=== PATIENT | male | born 1965 | race Caucasian/White ===

== ENCOUNTER 2017-05-24 18:18 | Emergency (ER) | payer OTHER, BC ==
[2017-05-24] MEDS ORDERED: Albuterol/Ipratropium 3.0-0.5 MG/3 ML Neb Soln NEB ONE (18:46)
--- NOTE | 2017-05-24 19:25 | EDM.PDOC ---
ED HPI GENERAL MEDICAL PROBLEM - General Chief Complaint: Respiratory Problem Stated Complaint: TROUBLE BREATHING Time Seen by Provider: 05/24/17 18:26 Source of Information: Reports: Patient History Limitations: Reports: No Limitations - History of Present Illness INITIAL COMMENTS - FREE TEXT/NARRATIVE: Presents to the ER reporting a 3 month history of off and on cough since having the flu back in February. Denies sore throat, sinus fullness, ear fullness, shortness of breath. He states that he coughs so hard he almost blacks out when driving and that his chest hurts with the severe coughing. He does not smoke. He has not seen a provider in the interim. Middle Chest Pain Score (Numeric/FACES): 2 - Related Data Allergies Allergy/AdvReac Type Severity Reaction Status Date / Time No Known Allergies Allergy Verified 05/24/17 18:27 Home Meds: Home Meds Prednisone [IMW: predniSONE] 2 tab PO WITHBREAKFAST #12 tab 05/24/17 [Rx] amLODIPine Besylate [Amlodipine Besylate] 5 mg PO DAILY 05/24/17 [History] Past Medical History Cardiovascular History: Reports: Hypertension - Infectious Disease History Infectious Disease History: Reports: Chicken Pox, Measles, Mumps - Past Surgical History Musculoskeletal Surgical History: Reports: Other (See Below) Other Musculoskeletal Surgeries/Procedures:: knee surgeries Social & Family History - Family History Family Medical History: Noncontributory Cardiac: Reports: Heart Failure - Tobacco Use Smoking Status *Q: Never Smoker - Caffeine Use Caffeine Use: Reports: Coffee - Alcohol Use Days Per Week of Alcohol Use: 3 Number of Drinks Per Day: 4 Total Drinks Per Week: 12 - Recreational Drug Use Recreational Drug Use: No ED ROS GENERAL - Review of Systems Review Of Systems: ROS reveals no pertinent complaints other than HPI. ED EXAM, GENERAL - Physical Exam Exam: See Below Exam Limited By: No Limitations General Appearance: Alert, No Apparent Distress Ears: Normal External Exam, Normal TMs Nose: Normal Inspection Throat/Mouth: Normal Inspection, Normal Oropharynx Head: Atraumatic, Normocephalic Neck: Normal Inspection Respiratory/Chest: No Respiratory Distress, Normal Breath Sounds, Rhonchi ( Scattered), Other (Harsh cough noted in exam room.) Cardiovascular: Normal Peripheral Pulses, Regular Rate, Rhythm, No Murmur GI/Abdominal: Soft Extremities: Normal Inspection, Normal Range of Motion Neurological: Alert, Oriented Psychiatric: Normal Affect, Normal Mood Skin Exam: Warm, Dry, Intact, Normal Color, No Rash Lymphatic: No Adenopathy Course - Vital Signs Last Recorded V/S: Last Vital Signs Temp 36.4 C 05/24/17 18:23 Pulse 60 05/24/17 18:23 Resp 18 05/24/17 18:23 BP 175/97 H 05/24/17 18:23 Pulse Ox 96 05/24/17 18:23 Departure - Departure Time of Disposition: 20:05 Disposition: Home, Self-Care 01 Condition: Good Clinical Impression: Bronchitis - Discharge Information Referrals: PCP,None [Primary Care Provider] - [facility] [Outside] [facility] [Outside] Additional Instructions: 1. Take your prednisone daily for next 6 days, start tonight (with food) 2. Cheratussin with codeine every 4-6 hours as needed for cough with driving precautions. 3. Drink plenty of fluids. 4. Follow up in primary care.
[2017-05-24 20:39] VITALS: BP 147/84
--- NOTE | 2017-05-25 10:48 | CR ---
EXAM DATE: 05/24/17 PATIENT'S AGE: 52 Patient: ALEXEY PRASAD Facility: [place], [place] Site . Site : [id number] Study: XRay Chest [id number] 7:32:43 PM Ordering Physician: Doctor Logan Final Report: INDICATION: cough on and off few months, SOB, hx of influenza B CHEST, PA AND LATERAL Upright PA and lateral radiographs of the chest were performed. Comparison: No previous studies are currently available for comparison. The lungs appear clear and there are no pleural effusions. Heart size and pulmonary vasculature appear normal. Visualized bones show no significant findings. IMPRESSION: No acute intrathoracic abnormality identified. PARKER BROWN MD [employer] Dictated by: Harrison Brown MD @ 05/24/2017 19:46:39 (Electronic Signature) Report Signed by Proxy. [facility]
== END 2017-05-24 20:30 | disposition home or self-care (01) ==
LOC: MW.ED 18:18
DX: J40 Bronchitis, not specified as acute or chronic (principal); I10 Essential (primary) hypertension
CPT/HCPCS: 71046; 71046-26; 94640; 99283-25

== ENCOUNTER 2017-05-28 14:44 | Emergency (ER) | payer BC, OTHER | END 2017-05-28 15:20 | disposition left against medical advice (07) | LOC: MW.ED 14:44 | DX: Z53.21 Procedure and treatment not carried out due to patient leaving prior to being seen by health care provider (principal) ==

== ENCOUNTER 2020-03-06 06:18 | Emergency (ER) | payer BC, OTHER ==
[2020-03-06] MEDS ORDERED: Sodium Chloride 0.9% 10 ML Syringe FLUSH PRN (06:36)
[2020-03-06] MEDS ORDERED: Sodium Chloride 0.9% 2.5 ML Syringe FLUSH PRN (06:36)
--- NOTE | 2020-03-06 06:37 | EDM.PDOC ---
<Que Mark - Last Filed: 03/06/20 16:26> ED HPI GENERAL MEDICAL PROBLEM - General Chief Complaint: Abdominal Pain Stated Complaint: ABDOMINAL PAIN Time Seen by Provider: 03/06/20 06:26 - History of Present Illness INITIAL COMMENTS - FREE TEXT/NARRATIVE: Patient was signed out to me by Dr. Dexter pending labs and imaging at 7 AM I did reevaluate the patient and patient appeared comfortable. His pain had improved. At the time of my evaluation the patient's labs and imaging had not yet returned. Laboratory: CBC is unremarkable. CMP is unremarkable. Lipase is normal. Urinalysis was a clean catch and was negative for leukocyte esterase, negative for nitrites, and negative for blood. Interpretation: negative. The radiological images were viewed by myself along with reading the report from the radiologist. CT abdomen pelvis with contrast reveals acute uncomplicated sigmoid diverticulitis After labs and imaging I did discuss the results with the patient. At this time his pain was controlled. I discussed with him that I would like to provide him with ciprofloxacin and metronidazole and that I be prescribing him with antibiotics to be used over the next 10 days. He was amenable to discharge and had no further questions. The patient should return for any new or worsening symptoms. DISPOSITION: The patient was discharged home in stable condition. The patient will follow up with PCP within 1 week CONDITION: Fair PROCEDURES: None FINAL IMPRESSION(S)/DIAGNOSES: 1. Acute diverticulitis Que Mark M.D. - Related Data Allergies Allergy/AdvReac Type Severity Reaction Status Date / Time No Known Allergies Allergy Verified 11/29/17 10:58 Home Meds: Home Meds Ciprofloxacin [Ciprofloxacin HCl] 500 mg PO BID #20 tab 03/06/20 [Rx] Non-Formulary Medication [NF Drug] 03/06/20 [History] lisinopriL [Prinivil] 5 mg PO BID 03/06/20 [History] metroNIDAZOLE [Flagyl] 500 mg PO TID #30 tablet 03/06/20 [Rx] Departure - Departure Time of Disposition: 09:12 Disposition: Home, Self-Care 01 Condition: Fair Clinical Impression: Diverticulitis - Discharge Information *PRESCRIPTION DRUG MONITORING PROGRAM REVIEWED*: No *COPY OF PRESCRIPTION DRUG MONITORING REPORT IN PATIENT ARMIN: No Prescriptions: Ciprofloxacin [Ciprofloxacin HCl] 500 mg PO BID #20 tab metroNIDAZOLE [Flagyl] 500 mg PO TID #30 tablet Instructions: Diverticulitis, [id number] Referrals: PCP,None [Primary Care Provider] - Forms: ED Department Discharge Additional Instructions: Your evaluated today on an emergent basis. You were diagnosed with diverticulitis. Please take the antibiotics as prescribed until all antibiotics are gone. Please follow-up with your primary care physician within 1 week. Please return to the emergency department for any worsening symptoms such as fever, worsening abdominal pain. [facility] [address] [place] [id number] [facility] [address] [place] [id number] The patient is informed of any results of their evaluation and diagnostic workup and all questions are answered. They are given discharge instructions and return precautions. The patient is stable for discharge. The patient states they understand and agree with the plan and that they will return if their symptoms get worse or if they have any new concerns. The following information is given to patients seen in the emergency department who are being discharged to home. This information is to outline your options for follow-up care. We provide all patients seen in our emergency department with a follow-up referral. The need for follow-up, as well as the timing and circumstances, are variable depending upon the specifics of your emergency department visit. If you don't have a primary care physician on staff, we will provide you with a referral. We always advise you to contact your personal physician following an emergency department visit to inform them of the circumstance of the visit and for follow-up with them and/or the need for any referrals to a consulting specialist. The emergency department will also refer you to a specialist when appropriate. This referral assures that you have the opportunity for follow-up care with a specialist. All of these measure are taken in an effort to provide you with optimal care, which includes your follow-up. Under all circumstances we always encourage you to contact your private physician who remains a resource for coordinating your care. When calling for follow-up care, please make the office aware that this follow-up is from your recent emergency room visit. If for any reason you are refused follow-up, please contact the [facility] Emergency Department at and asked to speak to the emergency department charge nurse. <Karlos Dexter - Last Filed: 03/06/20 19:11> ED HPI GENERAL MEDICAL PROBLEM - History of Present Illness INITIAL COMMENTS - FREE TEXT/NARRATIVE: History of present illness: [] The patient has abdominal pain left lower quadrant is moderately severe for 4 days. It has not changed except its worse when he moves. He does not have any known injury. He is not having nausea or vomiting or fever or chills. His bowel movement and urine flow are normal. He is never had any surgery. He does not smoke and he drinks a little bit of a used to drink heavily. He is concerned because friends had diverticulosis and lost part of their intestine. Review of systems: As per history of present illness and below otherwise all systems reviewed and negative. Past medical history: As per history of present illness and as reviewed below otherwise noncontributory. Surgical history: As per history of present illness and as reviewed below otherwise noncontributory. Social history: No reported history of drug or alcohol abuse. Family history: As per history of present illness and as reviewed below otherwise noncontributory. Physical exam: Constitutional - well developed, well-nourished and in no acute distress HEENT - normocephalic, no evidence of trauma - external nose and mouth normal - no mass in neck and no JVD - mucosae moist EYES - full EOM, PERRL, no icterus - no evidence of inflammation, injection, or drainage Respiratory - no respiratory distress, equal bilateral expansion, lungs clear to auscultation and no abnormal lung sounds Cardiovascular - Regular Rhythm with S1 and S2 appreciated and no murmur, gallop or rub. GI -tender left lower quadrant. Guards left lower quadrant. Abdomen soft without distension or organomegaly -hyperactive bowel sounds - no rebound - normal external genitalia with no evidence of hernia Musculoskeletal no gross deformity of long bones or joints - no tenderness, swelling or edema Neurologic - Alert and oriented times four - CN II-XII grossly intact - motor sensory and coordination symmetrically normal Psychiatric - appropriate mood and affect with normal thought content Hematologic - No petechiae or purpura - mucosa appropriate color and sclera not pale - normal nail bed color and refill Integument - no rash or evidence of trauma - normal turgor Diagnostics: [] Therapeutics: [] Impression: [] Plan: [] Definitive disposition and diagnosis as appropriate pending reevaluation and review of above. L abdominal pain Pain Score (Numeric/FACES): 6 Past Medical History Cardiovascular History: Reports: Hypertension Gastrointestinal History: Reports: GERD - Infectious Disease History Infectious Disease History: Reports: Chicken Pox, Measles, Mumps - Past Surgical History Musculoskeletal Surgical History: Reports: Other (See Below) Other Musculoskeletal Surgeries/Procedures:: knee surgeries Social & Family History - Family History Family Medical History: No Pertinent Family History Cardiac: Reports: Heart Failure Endocrine/Metabolic: Reports: Other (See Below) Other Endocrine/Metabolic Family History: SLE Oncologic: Reports: Other (See Below) Other Oncologic Family History: Cancer - Caffeine Use Caffeine Use: Reports: Coffee ED ROS GENERAL - Review of Systems Review Of Systems: Comprehensive ROS is negative, except as noted in HPI. ED EXAM, GENERAL - Physical Exam Exam: See Below Free Text/Narrative:: My physical exam is in the HPI Course - Vital Signs Last Recorded V/S: Last Vital Signs Temp 36.4 C 03/06/20 09:28 Pulse 57 L 03/06/20 09:28 Resp 16 03/06/20 09:28 BP 132/80 03/06/20 09:28 Pulse Ox 95 03/06/20 09:28 - Orders/Labs/Meds Orders: Active Orders 24 hr Category Date Time Status Saline Lock Insert [OM.PC] Stat Oth 03/06/20 06:36 Ordered Labs: Laboratory Tests 03/06/20 03/06/20 03/06/20 Range/Units 06:30 06:55 06:55 WBC 10.65 (4.0-11.0) K/uL RBC 3.97 L (4.50-5.90) M/uL Hgb 12.8 L (13.0-17.0) g/dL Hct 37.7 L (38.0-50.0) % MCV 95.0 (80.0-98.0) fL MCH 32.2 H (27.0-32.0) pg MCHC 34.0 (31.0-37.0) g/dL RDW Std Deviation 44.6 (28.0-62.0) fl RDW Coeff of Lyly 13 (11.0-15.0) % Plt Count 304 (150-400) K/uL MPV 10.50 (7.40-12.00) fL Neut % (Auto) 69.5 (48.0-80.0) % Lymph % (Auto) 17.9 (16.0-40.0) % [place] % (Auto) 10.6 (0.0-15.0) % Eos % (Auto) 1.8 (0.0-7.0) % Baso % (Auto) 0.2 (0.0-1.5) % Neut # (Auto) 7.4 H (1.4-5.7) K/uL Lymph # (Auto) 1.9 (0.6-2.4) K/uL [place] # (Auto) 1.1 H (0.0-0.8) K/uL Eos # (Auto) 0.2 (0.0-0.7) K/uL Baso # (Auto) 0.0 (0.0-0.1) K/uL Nucleated RBC % 0.0 /100WBC Nucleated RBCs # 0 K/uL Sodium 138 (136-148) mmol/L Potassium 4.0 (3.5-5.1) mmol/L Chloride 99 (98-107) mmol/L Carbon Dioxide 27.7 (21.0-32.0) mmol/L BUN 18 (7.0-18.0) mg/dL Creatinine 0.9 (0.8-1.3) mg/dL Est Cr Clr Drug Dosing 102.26 mL/min Estimated GFR (MDRD) > 60.0 ml/min Glucose 106 (74-106) mg/dL Calcium 9.7 (8.5-10.1) mg/dL Total Bilirubin 0.9 (0.2-1.0) mg/dL AST 24 (15-37) IU/L ALT 32 (14-63) IU/L Alkaline Phosphatase 73 (46-116) U/L Total Protein 8.1 (6.4-8.2) g/dL Albumin 4.4 (3.4-5.0) g/dL Globulin 3.7 (2.6-4.0) g/dL Albumin/Globulin Ratio 1.2 (0.9-1.6) Lipase 99 (73-393) U/L Urine Color YELLOW Urine Appearance CLEAR Urine pH 6.0 (5.0-8.0) Ur Specific [place] 1.020 (1.001-1.035) Urine Protein NEGATIVE (NEGATIVE) mg/dL Urine Glucose (UA) NEGATIVE (NEGATIVE) mg/dL Urine Ketones NEGATIVE (NEGATIVE) mg/dL Urine Occult Blood NEGATIVE (NEGATIVE) Urine Nitrite NEGATIVE (NEGATIVE) Urine Bilirubin NEGATIVE (NEGATIVE) Urine Urobilinogen 0.2 (<2.0) EU/dL Ur Leukocyte Esterase NEGATIVE (NEGATIVE) Meds: Medications Discontinued Medications Generic Name Dose Route Start Last Admin Trade Name Freq PRN Reason Stop Dose Admin Ciprofloxacin 500 mg 03/06/20 09:09 03/06/20 09:17 Ciprofloxacin Hcl PO 03/06/20 09:10 500 mg ONETIME ONE Administration Sodium Chloride 1,000 mls @ 125 mls/hr 03/06/20 06:45 03/06/20 06:59 Normal Saline IV 125 mls/hr ASDIRECTED KARY Administration Iopamidol 100 ml 03/06/20 07:42 03/06/20 07:52 Isovue Multipack-370 (76%) IVPUSH 03/06/20 07:43 100 ml ONETIME STA Administration Metronidazole 500 mg 03/06/20 09:09 03/06/20 09:17 Metronidazole PO 03/06/20 09:10 500 mg ONETIME ONE Administration Sodium Chloride 10 ml 03/06/20 06:36 03/06/20 08:18 Saline Flush FLUSH 10 ml ASDIRECTED PRN Administration Keep Vein Open Sodium Chloride 2.5 ml 03/06/20 06:36 03/06/20 08:18 Saline Flush FLUSH 2.5 ml ASDIRECTED PRN Administration Keep Vein Open Departure - Departure Condition: Good, Fair Sepsis Event Note (ED) - Focused Exam Vital Signs: Vital Signs Temp Pulse Resp BP Pulse Ox 03/06/20 09:28 36.4 C 57 L 16 132/80 95 - My Orders Last 24 Hours: My Active Orders 03/06/20 06:36 Saline Lock Insert [OM.PC] Stat - Assessment/Plan Last 24 Hours: My Active Orders 03/06/20 06:36 Saline Lock Insert [OM.PC] Stat
[2020-03-06] MEDS ORDERED: Sodium Chloride 0.9% 1,000 ML IV SCH (06:45)
[2020-03-06 07:26] LABS: BLOOD UREA NITROGEN,BUN 18 mg/dL (7.0-18.0); CARBON DIOXIDE,CO2 27.7 mmol/L (21.0-32.0); CHLORIDE,CL 99 mmol/L (98-107); GLUCOSE RANDOM 106 mg/dL (74-106); LIPASE 99 U/L (73-393); SODIUM,NA 138 mmol/L (136-148)
[2020-03-06] MEDS ORDERED: Iopamidol 755 MG/ML 500 ML Multipack Bottle IVPUSH STA (07:42)
--- NOTE | 2020-03-06 08:25 | CT ---
INDICATION: Lower abdominal pain and tenderness. TECHNIQUE: CT abdomen and pelvis acquired with 100 cc Isovue 370 IV contrast. COMPARISON: None. FINDINGS: Lower chest: Unremarkable. Liver: Moderate fatty infiltration. Otherwise unremarkable. Gallbladder and bile ducts: Unremarkable. No stones or inflammation. No biliary dilatation. Pancreas: Unremarkable. No mass or inflammation. Spleen: Unremarkable. Normal in size. No masses. Adrenal glands: Very small adenoma suspected in the left adrenal gland. Kidneys: Unremarkable. No masses, stones, or hydronephrosis. GI tract: There is moderate inflammation of a diverticulum in the proximal sigmoid colon without keren perforation or abscess. Remainder of the GI tract is normal. Normal appendix. Vasculature: Unremarkable. Mesenteric arteries are patent. Lymph nodes: No lymphadenopathy. Omentum/Peritoneum/Abdominal Wall: Unremarkable. No sign of mass or infiltration. No free air or significant free fluid. Pelvis: Unremarkable. Bones: Unremarkable for age. IMPRESSION: Acute uncomplicated sigmoid diverticulitis. Please note that all CT scans at this facility use dose modulation, iterative reconstruction, and/or weight-based dosing when appropriate to reduce radiation dose to as low as reasonably achievable. Dictated by Javier Burt MD @ Mar 06 2020 8:05AM Signed by Dr. Javier Burt @ Mar 06 2020 8:24AM
[2020-03-06] MEDS ORDERED: Ciprofloxacin 500 MG Tab PO ONE (09:09)
[2020-03-06] MEDS ORDERED: metroNIDAZOLE 250 MG Tab PO ONE (09:09)
[2020-03-06 09:30] VITALS: BP 132/80; PULSE 57
== END 2020-03-06 09:28 | disposition home or self-care (01) ==
LOC: MW.ED 06:18
DX: K57.32 Diverticulitis of large intestine without perforation or abscess without bleeding (principal); I10 Essential (primary) hypertension; Z79.899 Other long term (current) drug therapy
CPT/HCPCS: 36415; 74177; 80053; 81003; 83690; 85025; 99284; A9270; J7030; Q9967

== ENCOUNTER 2022-09-30 14:01 | Emergency (ER) | payer OTHER ==
[2022-09-30 14:49] VITALS: BP 134/89; PULSE 71
== END 2022-09-30 16:00 | disposition home or self-care (01) ==
LOC: MW.ED 14:01
DX: M79.10 Myalgia, unspecified site (principal); I10 Essential (primary) hypertension; I48.91 Unspecified atrial fibrillation; Z86.16 Personal history of COVID-19
CPT/HCPCS: 99283

== ENCOUNTER 2022-10-01 09:59 | Emergency (ER) | payer OTHER ==
[2022-10-01 10:33] VITALS: BP 113/76
[2022-10-01] MEDS ORDERED: HYDROmorphone 1 MG/ML Syringe IM ONE (11:14)
[2022-10-01 12:17] VITALS: PULSE 64
== END 2022-10-01 12:53 | disposition home or self-care (01) ==
LOC: MW.ED 09:59
DX: G89.29 Other chronic pain (principal); M25.562 Pain in left knee; M79.642 Pain in left hand; I48.91 Unspecified atrial fibrillation; I10 Essential (primary) hypertension; Z86.16 Personal history of COVID-19; Z79.899 Other long term (current) drug therapy
CPT/HCPCS: 96372; 99283; J1170